=== PATIENT | male | born 1985 | race African-American/Black ===

== ENCOUNTER 2016-12-12 00:53 | Emergency (ER) | payer OTHER, MEDICAID ==
[~2016-12-12] VITALS: Ht 180.3 cm; Wt 78.0 kg
--- NOTE | ~2016-12-12 | CR72 ---
[facility] A Service of [facility] & [facility] RADIOLOGY TEXT RESULTS PATIENT: ELISABET CURRY LOCATION: [facility] : 81 UNIT #: [id number] AGE: [address]: Manav Goel DO SEX: M ORDER DR: [id number] [facility] [address] [place], [place] [address] [id number] E MR#: [id number] Acc #: [id number] NAME: ELISABET CURRY : 1985 SEX: M STUDY DATE/TIME: 12/12/2016 1:34 UNIT: [facility] ROOM: STUDY DESCRIPTION: CR Chest Single View Portable Attending Physician: Manav Goel D.O. Ordering Physician: Manav Goel D.O. Primary Care Physician: Primary Care Physician No MEDICAL IMAGING REPORT This report is preliminary unless electronic signature is present EXAM Portable chest INDICATION Shortness of air, allergic reaction today. PROCEDURE Frontal view of the chest. COMPARISON None. FINDINGS Heart size within normal limits. No dense consolidation, pleural fluid or pneumothorax. IMPRESSION No active process. Dictated by... Abdoulaye Jackson M.D. THIS IS AN ELECTRONICALLY VERIFIED REPORT Abdoulaye Jackson M.D. at 12/13/2016 9:55 PM CHRIS/marianne TD: 12/12/2016 10:28 JOB #: [id number] MEDICAL IMAGING REPORT Page 1 of 1 COPY
--- NOTE | ~2016-12-12 | CR195 ---
[facility] A Service of [facility] & [facility] RADIOLOGY TEXT RESULTS PATIENT: ELISABET CURRY LOCATION: [facility] : 81 UNIT #: [id number] AGE: [address]: Manav Goel DO SEX: M ORDER DR: [id number] [facility] [address] [place], [place] [address] [id number] E MR#: [id number] Acc #: [id number] NAME: ELISABET CURRY : 1985 SEX: M STUDY DATE/TIME: 12/12/2016 1:35 UNIT: [facility] ROOM: STUDY DESCRIPTION: CR Neck Soft Tissue Attending Physician: Manav Goel D.O. Ordering Physician: Manav Goel D.O. Primary Care Physician: Primary Care Physician No MEDICAL IMAGING REPORT This report is preliminary unless electronic signature is present EXAM Neck soft tissue series INDICATION Airway tightness and swelling. Allergic reaction tonight. PROCEDURE Frontal and lateral views of the neck utilizing soft tissue technique. COMPARISON None. FINDINGS Airway is patent. No radiodense foreign body. No appreciable epiglottic thickening or prevertebral soft tissue thickening. IMPRESSION Negative neck series. Dictated by... Abdoulaye Jackson M.D. THIS IS AN ELECTRONICALLY VERIFIED REPORT Abdoulaye Jackson M.D. at 12/13/2016 9:55 PM CHRIS/marianne TD: 12/12/2016 10:29 JOB #: [id number] MEDICAL IMAGING REPORT Page 1 of 1 COPY
[2016-12-12 04:05] LABS: BASOPHIL% 0.9 % (0-2.5); DIFF IND NO; EOSINOPHIL# 0.4 X10e3 (0-0.7); EOSINOPHIL% 9.5 % (0.0-7.0); HEMATOCRIT 43.8 % (38.0-50.0); HEMOGLOBIN 15.1 gm/dL (13.0-16.0); LYMPHOCYTE# 1.1 X10e3 (1.0-3.5); LYMPHOCYTE% 27.6 % (17.0-45.0); MEAN CELL VOLUME 87.6 FL (83-96); MEAN CORPUSCULAR HEMOGLOBIN 30.2 PG (28-34); MEAN CORPUSCULAR HGB CONC 34.5 g/dL (30-36); MEAN PLATELET VOLUME 8.5 FL (6.5-11.5); MONOCYTE# 0.3 X10e3 (0-1.0); NEUTROPHIL# 2.2 X10e3 (1.5-7.1); PLATELET COUNT 171 X10e3 (140-420); RED CELL DISTRIBUTION WIDTH 13.4 % (11.0-15.5)
[2016-12-12 04:26] LABS: BUN/CREATININE RATIO 18.33; CALCIUM SERUM 8.6 mg/dL (8.4-10.2); CREATININE SERUM 0.6 mg/dL (0.6-1.4); GLOM FILT RATE Estimated 153.2 mL/min (>60); POTASSIUM 3.8 mmol/L (3.5-5.1)
== END 2016-12-12 05:05 | disposition home or self-care (01) ==
LOC: CED 00:53
PROVIDERS: Emergency Medicine
DX: T78.1XXA Other adverse food reactions, not elsewhere classified, initial encounter (principal); L29.9 Pruritus, unspecified
CPT/HCPCS: 36415; 70360; 71010; 80048; 84484; 85025; 96374; 96375; 99285; J1200; J2930